=== PATIENT | male | born 1980 | race Caucasian/White ===

== ENCOUNTER 2023-09-20 23:52 | Emergency (ER) | payer OTHER ==
[2023-09-21 00:02] VITALS: BP 133/94; PULSE 89; RESP 16; TEMP 98.1; BMI 31.0
== END 2023-09-21 01:13 | disposition home or self-care (01) ==
LOC: FER 23:52
DX: S76.321A Laceration of muscle, fascia and tendon of the posterior muscle group at thigh level, right thigh, initial encounter (principal); X50.9XXA Other and unspecified overexertion or strenuous movements or postures, initial encounter; Y99.0 Civilian activity done for income or pay
CPT/HCPCS: 93971-TC; 99284-25